=== PATIENT | male | born 1995 | race Caucasian/White ===

== ENCOUNTER 2024-04-10 22:35 | Inpatient (IN) | payer BC, MEDICAID ==
[~2024-04-10] VITALS: Ht 170.2 cm; Wt 65.5 kg
[~2024-04-10 22:35] MED LIST: NOCURR
[2024-04-11] VITALS (10 sets, daily range): BP systolic 103–118; BP diastolic 56–76; PULSE 60–93; RESP 18–19; TEMP 97–98.5; O2SAT 96–98
[2024-04-11] MEDS: ONDANSETRON HCL 4 MG/2 ML VIAL IVP ONE (00:40)
[2024-04-11] MEDS: SODIUM CHLORIDE 0.9% 2,000 ML IV ONE (00:40)
[2024-04-11 00:57] LABS: BASOPHILS % (AUTO) 0.7 % (0.0-2.0); EOSINOPHILS % (AUTO) 0.9 % (1.0-6.0); HEMATOCRIT 41.5 % (41-53); HEMOGLOBIN 14.4 g/dL (13.5-17.5); LYMPHOCYTES # (AUTO) 1.4 K/uL (1.0-4.8); LYMPHOCYTES % (AUTO) 16.1 % (22.0-44.0); MEAN CORPUSCULAR HEMOGLOBIN 29.1 pg (26.0-34.0); MEAN CORPUSCULAR HGB CONC 34.8 G/dL (31.0-37.0); MEAN CORPUSCULAR VOLUME 84 fL (80-100); MONOCYTES # (AUTO) 0.4 K/uL (0.1-1.0); MONOCYTES % (AUTO) 5.1 % (2.0-9.0); NEUTROPHILS # (AUTO) 6.7 K/uL (1.8-7.7); NEUTROPHILS % (AUTO) 77.2 % (40.0-70.0); PLATELET COUNT (AUTO) 242 K/uL (150-450); RED BLOOD CELL COUNT(AUTO) 4.96 MIL/uL (4.50-5.90); RED CELL DISTRIBUTION WIDTH 13.5 % (11.5-14.5); WHITE BLOOD COUNT (AUTO) 8.7 K/uL (4.5-11.0)
[2024-04-11] MEDS: LORazepam 2 MG/ML VIAL IVP ONE (01:05)
[2024-04-11 01:09] LABS: ALCOHOL, BLOOD (SERUM) < 3 mg/dL (0-10)
[2024-04-11 01:10] LABS: ANION GAP 11 mmol/L (8-16); CALCIUM, TOTAL 9.5 mg/dL (8.8-10.5); CARBON DIOXIDE 31 mmol/L (22-29); CHLORIDE 100 mmol/L (98-107); CREATININE 0.98 mg/dL (0.60-1.30); GLOMERULAR FILTR. RATE CALC > 60 mL/min (>60); GLUCOSE,RANDOM 95 mg/dL (70-110); POTASSIUM 3.4 mmol/L (3.5-5.1); SODIUM SERUM 142 mmol/L (136-145); UREA NITROGEN, BLOOD 20 mg/dL (7-18)
[2024-04-11 01:34] LABS: CREATINE KINASE, TOTAL ONLY 255 U/L (39-308)
[2024-04-11 03:20] LABS: COVID AG,FIA SOURCE NASAL SWAB
[2024-04-11] MEDS: POTASSIUM CHLORIDE 20 MEQ ER TABLET PO ONE (03:23)
[2024-04-11] MEDS: LORazepam 2 MG TABLET PO PRN (03:57)
[2024-04-11 04:37] LABS: SARS-COV2 (COVID) ANTIGEN,FIA Negative (Negative)
[2024-04-11 07:47] LABS: APPEARANCE,URINE CLEAR (CLEAR); BILIRUBIN,URINE NEGATIVE (NEGATIVE); COLOR,URINE YELLOW (YELLOW); GLUCOSE, URINE (UA) NEGATIVE (NEGATIVE); KETONES,URINE TRACE mg/dL (NEGATIVE); LEUKOCYTE ESTERASE ,URINE NEGATIVE (NEGATIVE); NITRATE,URINE NEGATIVE (NEGATIVE); OCCULT BLOOD,URINE NEGATIVE (NEGATIVE); PROTEIN,URINE 30-70 mg/dL (NEGATIVE); SPECIFIC GRAVITIY, URINE 1.031 (1.003-1.030); UROBILINOGEN,URINE <=1.0 mg/dL (<=1.0)
[2024-04-11 07:49] LABS: ALCOHOL, URINE DRUG SCREEN NEGATIVE (NEGATIVE); AMPHET/METH SCREEN,URINE POSITIVE (NEGATIVE); BARBITURATE SCREEN, URINE NEGATIVE (NEGATIVE); BENZODIAZEPINES SCREEN,URINE NEGATIVE (NEGATIVE); CANNABINOID SCREEN,URINE POSITIVE (NEGATIVE); COCAINE SCREEN,URINE NEGATIVE (NEGATIVE); METHADONE SCREEN, URINE NEGATIVE (NEGATIVE); OPIATE SCREEN,URINE NEGATIVE (NEGATIVE); PHENCYCLIDINE SCREEN,URINE NEGATIVE (NEGATIVE)
[2024-04-11] MEDS: NICOTINE 21 MG/24 HOUR PATCH TD SCH (11:58)
[2024-04-11] MEDS ORDERED: HydrOXYzine PAMOATE 50 MG CAPSULE PO PRN (12:15)
[2024-04-11] MEDS ORDERED: LOPERAMIDE HCL 2 MG CAPSULE PO PRN ×2 (12:15)
[2024-04-11] MEDS ORDERED: ACETAMINOPHEN 325 MG TABLET PO PRN (12:15)
[2024-04-11] MEDS ORDERED: PROMETHAZINE HCL 25 MG TABLET PO PRN (12:15)
[2024-04-11] MEDS ORDERED: MAGNESIUM HYDROXIDE SUSPENSION 30 ML UDCUP PO PRN (12:15)
[2024-04-11] MEDS ORDERED: MAG HYDROX/ALUMINUM HYD/SIMETH ES 30 ML SUSPENSION UDCUP PO PRN ×2 (12:15)
[2024-04-11] MEDS ORDERED: GuaiFENesin/D-METHORPHAN [SUGAR-FREE] 200-20MG/10 ML SYRUP UDCUP PO PRN (12:15)
[2024-04-11] MEDS ORDERED: IBUPROFEN 600 MG TABLET PO PRN (12:15)
[2024-04-11] MEDS ORDERED: TUBERCULIN, PURIFIED PROTEIN DERIVATIVE 5 TU/0.1 ML SYRINGE ID ONE (12:15)
[2024-04-11] MEDS ORDERED: CloNIDine HCL 0.1 MG TABLET PO PRN (12:15)
[2024-04-11] MEDS: CYANOCOBALAMIN 1,000 MCG/ML VIAL IM ONE (12:30)
[2024-04-11] MEDS: THIAMINE 100 MG TABLET PO SCH (17:16)
[2024-04-11] MEDS: CloNIDine HCL 0.1 MG TABLET PO SCH (17:16)
[2024-04-11] MEDS: QUEtiapine FUMARATE 100 MG TABLET PO PRN (20:53)
[2024-04-11] MEDS: MELATONIN 5 MG TABLET PO SCH (20:53)
[2024-04-11] MEDS: MIRTAZAPINE 15 MG TABLET PO SCH (20:53)
[2024-04-11] MEDS: ZOLPIDEM TARTRATE 10 MG TABLET PO PRN (22:34)
[2024-04-12] VITALS (7 sets, daily range): BP systolic 93–121; BP diastolic 55–74; PULSE 56–98; RESP 17–18; TEMP 98.2–98.6; O2SAT 96–99
[2024-04-12] MEDS: FOLIC ACID 1 MG TABLET PO SCH (08:38)
[2024-04-12] MEDS: MULTIVITAMINS WITH MINERALS, THERAPEUTIC TABLET PO SCH (08:38)
[2024-04-12] MEDS ORDERED: NICOTINE POLACRILEX 2 MG GUM CHEW PRN (13:00)
[2024-04-12 20:56] LABS: GLUCOMETER DEV NAME(LOC) 3E.C; GLUCOSE,POINT OF CARE 262 MG/DL (70-110)
[2024-04-12] MEDS: HydrOXYzine PAMOATE 50 MG CAPSULE PO PRN (21:40)
[2024-04-13 08:16] VITALS: BP 112/77; PULSE 79; RESP 17; TEMP 98.2; O2SAT 98
[2024-04-13] MEDS ORDERED: MELA5TAB40 PO ×2 (10:19→10:47)
[2024-04-13] MEDS ORDERED: NALT50TA6 PO (10:19)
[2024-04-13] MEDS ORDERED: MIRT-89 PO ×2 (10:19→10:48)
[2024-04-13] MEDS ORDERED: NALT50TA33 PO (10:51)
== END 2024-04-13 14:30 | disposition home or self-care (01) | DRG 751 ==
LOC: EMS 22:35 → UNDOADMIN 04-11 01:40 → EDH 04-11 01:40 → 3EI 04-11 02:49 → 3EC 04-11 03:58
PROVIDERS: ADMIT Psychiatry & Neurology Psychiatry; ATTEND Psychiatry & Neurology Psychiatry
PROC: GZHZZZZ Group Psychotherapy (ICD-10-PCS; principal; 2024-04-12)
PROC: GZ51ZZZ Individual Psychotherapy, Behavioral (ICD-10-PCS; 2024-04-12)
PROC: GZ58ZZZ Individual Psychotherapy, Cognitive-Behavioral (ICD-10-PCS; 2024-04-12)
DX: F33.2 Major depressive disorder, recurrent severe without psychotic features (principal); R00.1 Bradycardia, unspecified; E87.6 Hypokalemia; F14.10 Cocaine abuse, uncomplicated; F17.200 Nicotine dependence, unspecified, uncomplicated; R79.89 Other specified abnormal findings of blood chemistry; Z20.822 Contact with and (suspected) exposure to COVID-19; Z81.4 Family history of other substance abuse and dependence
CPT/HCPCS: 80048; 80307; 81003; 82550; 82962; 85025; 99285; G0480; J2060; J2405; J3420; J7030